=== PATIENT | male | born 1960 | race Two or more races ===

== ENCOUNTER 2024-11-27 13:08 | Emergency (ER) | payer OTHER, SELFPAY ==
[2024-11-27] VITALS (7 sets, daily range): BP systolic 151–192; BP diastolic 96–120; BMI 29.6
[2024-11-27 13:37] LABS: % Basophils 0.4 % (0-2); % Eosinophils 2.7 % (0-6); % Immature Granulocytes 0.4 % (0-0.5); % Lymphocytes 19.3 % (20.5-51.1); % Monocytes 6.5 % (1.7-9.3); % Neutrophils 70.7 % (42.2-75.2); Absolute Eosinophils 0.1 10^3/uL (0-0.7); Absolute Monocytes 0.3 10^3/uL (0.1-0.6); Absolute Neutrophils 3.7 10^3/uL (1.4-6.5); Hematocrit 43.5 % (39.0-52.0); Hemoglobin 14.6 g/dL (13.0-18.0); Mean Corp Hgb Conc. 33.6 g/dL (33.0-37.0); Mean Corpuscular Hgb 30.6 pg (27.0-31.0); Mean Corpuscular Volume 91.2 fL (80.0-94.0); Mean Platelet Volume 11.4 fL (7.4-10.4); Nucleated Red Blood Cells % 0 % (-); Platelet Count 160 10^3/uL (130-400); Red Blood Cell Count 4.77 10^6/uL (4.70-6.10); Red Cell Dist. Width 12.3 % (11.5-14.5); White Blood Cell Count 5.2 10^3/uL (4.8-10.8)
[2024-11-27 13:59] LABS: ALT (SGPT) 36 U/L (0-50); AST (SGOT) 22 U/L (17-59); Albumin 4.8 g/dl (3.5-5.0); Alkaline Phosphatase 94 U/L (38-126); Blood Urea Nitrogen 12 mg/dl (9-20); Calcium 9.2 mg/dl (8.4-10.2); Carbon Dioxide 29 mmol/L (22-30); Chloride 98 mmol/L (98-107); Glucose 104 mg/dl (70-99); Potassium 4.1 mmol/L (3.5-5.1); Sodium 136 mmol/L (135-145); Total Bilirubin 1.4 mg/dl (0.2-1.3); Total Protein 7.7 g/dl (6.3-8.2); eGFR > 60.00
[2024-11-27 14:10] LABS: Troponin I < 0.012 ng/ml
--- NOTE | 2024-11-27 15:37 | ED.GENMED ---
History of Present Illness
General
Chief Complaint: Chest Pain
Source: patient
Exam Limitations: none
Time Seen by Provider: 11/27/24 15:20
Nursing documentation reviewed up to this point in time: agreed with
History of Present Illness
History of Present Illness:
Patient is a 64-year-old male with Past medical history of hypertension followed by his local family doctor on losartan presents to the ER for evaluation of chest pain for the past several days. Pt was brought to the ER by his daughters who are
assisting to translate. He noticed this chest pain and took his blood pressure and it was elevated. Pain comes and goes however seems to worsen when his blood pressure is elevated as per daughter. Patient denies any recent fever chills cough.
Patient recently traveled to [facility] 2 weeks ago. No prior history of PE DVT no lower extremity swelling.
Patient has not taken any [id number] new medicines.
Review of Systems
Review of Systems
Allergies reviewed?: Yes
All Other Systems: ROS reviewed and negative except as documented in HPI and ROS
Constitutional: Reports no symptoms; Denies fever, fatigue or chills
Respiratory: Reports no symptoms
Cardiac: Reports chest pain; Denies diaphoresis, palpitations or syncope
ABD/GI: Reports no symptoms
: Reports no symptoms
Musculoskeletal: Reports no symptoms and other (denies leg pain )
Skin: Reports no symptoms
Psychiatric: Reports no symptoms
Phy Exam
General Physical Exam
General Presentation: no apparent distress
General age: appears stated age
General Skin: warm and dry
General Habitus: normal
General Mental: alert
Cardiovascular Exam
Cardiovascular Exam: no murmur, normal peripheral pulses and tachycardia
Pulmonary Exam
Pulmonary Exam: lungs clear and chest non tender
Gastrointestinal Exam
Gastrointestinal Exam: non tender and soft
Neurological Exam
Neurological Exam: alert and oriented x3
Musculoskeletal Exam
Musculoskeletal Exam: full ROM
Skin Exam
Skin Exam: normal color and warm/dry
Psychiatric Exam
Psychiatric Exam: normal mood/affect
Scores
Heart Score for Chest Pain Patients
STEMI patient?: Not applicable
Course
Orders/Labs/Results
Orders:
Orders
11/27/24 13:08
Electrocardiogram (*1) Urgent
Reason for Study: Chest Pain
EKG- Treatment ONCE
11/27/24 13:21
Complete Blood Count/With Diff Urgent
Comprehensive Metabolic Panel Urgent
Troponin I Urgent
11/27/24 15:54
CT Chest PE Study Urgent
Comment:
Reason For Exam: cp s/p travel
11/27/24 15:55
Ketorolac [Toradol] 15 mg IV NOW STA
Abnormal Lab Results
11/27/24
13:21
MPV 11.4 H fL
(7.4-10.4)
Absolute Lymphs (auto) 1.0 L 10^3/uL
(1.2-3.4)
Lymphocytes % 19.3 L %
(20.5-51.1)
Glucose 104 H mg/dl
(70-99)
Total Bilirubin 1.4 H mg/dl
(0.2-1.3)
11/27/24 13:21
11/27/24 13:21
Vital Signs
Initial and Last Documented VS:
Initial Vital Signs
Temp Pulse Resp BP Pulse Ox
97.8 F 100 16 180/120 100
11/27/24 13:12 11/27/24 13:12 11/27/24 13:12 11/27/24 13:12 11/27/24 13:12
Last Documented Vital Signs
Temp Pulse Resp BP Pulse Ox
97.8 F 103 13 163/111 97
11/27/24 13:12 11/27/24 16:45 11/27/24 16:45 11/27/24 16:31 11/27/24 16:45
MDM/Problems Addressed
Differential Diagnosis Includes:
Less likely hypertensive urgency, ACS, less likely PE
MDM/Problems Addressed:
Patient is a 64-year-old male who presents to the ER with intermittent chest pain for the past several days along with hypertension. Matt Does have a history of hypertension is on losartan.
He has had no associated shortness of breath however with recent travel CT PE study was done and negative. There is incidental thyroid nodule noted I did review this with daughter and the importance of close outpatient follow-up. Patient's blood
pressure has been elevated however no acute distress no evidence of hypertensive urgency or emergency. Patient has no associated headache he has no chest pain now. Will discharge patient home with outpatient follow-up with cardiology will place on
hotline.
*Radiology
Radiology exam reviewed: radiology read reviewed
*Pulse Oximetry
Patient hypoxic: no
*EKG
Interpreted by ED Provider?: Yes
Interpretation: normal
Heart Rate: 98
Rate: normal
Rhythm: sinus
Ischemia: no ischemia
*Critical Care Note
Total Time (30-74mins, 75-104mins- exclusive of procedures): Not Applicable
ED Attending Note
-
Portions of this chart may have been created with voice recognition software.� Occasional wrong word or��sound alike� substitutions may have occurred due to the inherent limitations of voice recognition software.
Discharge Plan
Departure
Patient Disposition: Home (Routine Discharge)
Date of Disposition: 11/27/24
Time of Disposition: 17:29
Patient with high blood pressure during this ER visit?: Yes
Covid-19: Not Applicable
Discharge Problem:
Chest pain, elevated blood pressure
Instructions: Chest Pain DCA Follow Up
Referrals:
Britt Alvarez MD [Family Provider] -
Prince Alcantara DO [Active] -
Activity Restrictions/Additional Instructions:
As discussed patient will be placed on the chest pain hotline which means he should receive a phone call from cardiology in the next 1 to 2 days if you do not hear from the office please give them a call to schedule an appointment soon as possible.
Follow-up both with cardiology and family doctor for reevaluation of symptoms and blood pressure. Also as discussed please follow-up with your family doctor for further evaluation of thyroid findings on CAT scan this will need likely a dedicated
ultrasound of the thyroid
Patient should continue to take his daily blood pressure medication as previously recommended return if any worsening of symptoms.
Interventions
Interventions:
*Risk Screen - Suicide Last Done: 11/27/24 13:12
*General Assessment Last Done: 11/27/24 13:12
*Neglect/Abuse Screening Last Done: 11/27/24 15:27
ED- Fall Risk Assessment Last Done: 11/27/24 15:27
*ED COVID-19 Vaccine History Last Done: 11/27/24 13:12
ED- Cardiac Assessment Last Done: 11/27/24 15:27
Discharge Date and Time
Print Language: YORUBA
[2024-11-27] MEDS: TORADOL 15 MG IV (16:32)
== END 2024-11-27 17:39 | disposition home or self-care (01) ==
LOC: EMR 13:08
PROVIDERS: Emergency Medicine; EMERGENCY PHYSICIAN Emergency Medicine; FAMILY PHYSICIAN Internal Medicine
DX: R07.9 Chest pain, unspecified (principal); I10 Essential (primary) hypertension; Z79.899 Other long term (current) drug therapy; E04.2 Nontoxic multinodular goiter
CPT/HCPCS: 99284; 96374; 71275; 80053; 84484; 85025; 93005; Q9967

== ENCOUNTER 2025-02-09 08:56 | Emergency (ER) | payer OTHER, SELFPAY ==
[2025-02-09] VITALS (7 sets, daily range): BP systolic 133–159; BP diastolic 89–102
--- NOTE | 2025-02-09 09:46 | ED.GENMED ---
History of Present Illness
General
Chief Complaint: Heart Rate Problem
Source: patient and family (Son-in-law who is translating for patient)
Exam Limitations: none
Time Seen by Provider: 02/09/25 09:21
Nursing documentation reviewed up to this point in time: agreed with
History of Present Illness
History of Present Illness:
The patient is a pleasant 64-year-old man who is from [place] and does not speak [place] who arrives with his son-in-law who is translating for him. The patient comes in with complaints of 1 to 2 days of a feeling of a rapid heartbeat and mild
shortness of breath. Patient denies chest pain. He denies recent illness. He denies recent long travel or hospitalization. His last flight was this past November. He denies a history of PE and DVT. He denies a past medical history of cardiac
disease, including heart failure and coronary artery disease. He denies a history of smoking cigarettes and cigars. He also has noticed mild swelling in both of his ankles and feet, equally bilaterally. Patient reports that he is on losartan as
well as amlodipine and last month, and recently had an increase of dosage of at least 1 of those medicines. He reports that he takes the medications as prescribed. He denies being on any other medications. He denies xecq-[id number] medications
such as Sudafed. He denies chest pain.
Past History
Past History
ED Past Medical History: HTN
ED Past Surgical History: Urological
Social History
Tobacco: Non-smoker
Alcohol: Other
Drug: None
Personal:
Living: with family
Employment: Other
Family History
Family History: Other
Review of Systems
Review of Systems
Allergies reviewed?: Yes
All Other Systems: ROS reviewed and negative except as documented in HPI and ROS
Constitutional: Reports no symptoms
EENT: Reports no symptoms
Respiratory: Reports trouble breathing
Cardiac: Reports palpitations
ABD/GI: Reports no symptoms
: Reports no symptoms
Musculoskeletal: Reports edema
Skin: Reports no symptoms
Neurological: Reports no symptoms
Endocrine: Reports no symptoms
Hematologic/Lymphatic: Reports no symptoms
Psychiatric: Reports no symptoms
Phy Exam
Physical Exam
Physical Exam:
Physical Exam
General: no apparent distress, not acutely ill, patient appears extremely comfortable and well
Neck: supple. no meningeal signs. normal psoterior pharynx
Heart: Regular rhythm, tachycardic
Lungs: no acute respiratory distress. clear bilaterally. Breathing comfortably. No tachypnea. No wheezing or crackles
Abdomen: normal bowel sounds. not tender. no CVAT
Neuro: alert and oriented. no focal neurological deficits
Skin: no rash
Psychiatric: well kept. interactive and cooperative
Extremities: 1+ nonpitting edema in bilateral feet and lower legs. Negative Homans' sign.
Course
Orders/Labs/Results
Orders:
Orders
02/09/25 09:01
EKG [Electrocardiogram (*1)] Urgent
Reason for Study: Palpitations
EKG- Treatment ONCE
02/09/25 09:25
Cardiac Monitoring- Treatment ONCE
IV Insert/Care/Rem.- Treatment PRN
02/09/25 09:43
Add On- LAB Urgent
Tests Added?: TSH
02/09/25 09:48
Complete Blood Count/With Diff Urgent
Comprehensive Metabolic Panel Urgent
D-Dimer Urgent
Pro-BNP [NT-proBNP] Urgent
TSH Urgent
Comment: ADD ON
Troponin I Urgent
02/09/25 10:34
Urinalysis Reflex To Culture Urgent
Date Specimen was Collected: 02/09/25
Time Specimen was Collected: 10:08
Urine Microscopic Reflex Cult Urgent
02/09/25 11:22
0.9% Sodium Chloride 1000 ml [Nss] 1,000 ml IV BOLUS
02/09/25 11:23
CT Chest PE Study Urgent
Comment:
Reason For Exam: ongoing tachycardia and palpitations, SOB
02/09/25 12:[address] Non Medication Order As Directed
Physician Order: walking pulse ox and heart rate
Abnormal Lab Results
02/09/25 02/09/25
09:48 10:34
MCH 31.7 H pg
(27.0-31.0)
MCHC 37.4 H g/dL
(33.0-37.0)
MPV 10.8 H fL
(7.4-10.4)
Abs Immat Gran (auto) 0.1 H 10^3/uL
(0-0.05)
Absolute Lymphs (auto) 0.7 L 10^3/uL
(1.2-3.4)
Immature Gran % 0.9 H %
(0-0.5)
Neutrophils % 77.1 H %
(42.2-75.2)
Lymphocytes % 11.7 L %
(20.5-51.1)
Chloride 93 L mmol/L
(98-107)
Carbon Dioxide 31 H mmol/L
(22-30)
Glucose 123 H mg/dl
(70-99)
Ur Occult Blood Reflex 4+ A
(Negative)
Urine RBC 7-10 A /HPF
(0-2)
02/09/25 09:48
02/09/25 09:48
Vital Signs
Initial and Last Documented VS:
Initial Vital Signs
Temp Pulse Resp BP Pulse Ox
98.3 F 108 20 155/101 96
02/09/25 08:57 02/09/25 08:57 02/09/25 08:57 02/09/25 08:57 02/09/25 08:57
Last Documented Vital Signs
Temp Pulse Resp BP Pulse Ox
98.3 F 106 12 133/94 96
02/09/25 08:57 02/09/25 13:30 02/09/25 13:30 02/09/25 13:00 02/09/25 13:30
MDM/Problems Addressed
Differential Diagnosis Includes:
Acute CHF, acute renal insufficiency, acute anemia, acute hyponatremia
MDM/Problems Addressed:
Patient presents with acute palpitations and mild bilateral leg edema
Chronic conditions affecting care: HTN
Acute Exacerbation and/or Progression of Chronic Illness:
Patient's hypertension can lead to acute CHF
Acute Exacerbation and/or Progression of Chronic Illness: HTN
*Pulse Oximetry
Patient hypoxic: no
*EKG
Interpreted by ED Provider?: Yes
Interpretation: abnormal
Comparison EKG: changes noted (Heart rate slightly increased from upper 90s to low 100s)
Rate: tachycardiac
Rhythm: sinus
[place]: normal axis
Interval: normal interval
QRS Pattern: left vent hypertrophy
Ischemia: no ischemia
*Insect Control Inspector Interpretation
Rate: tachycardiac
Interpretation: abnormal
Rhythm: sinus
*Critical Care Note
Total Time (30-74mins, 75-104mins- exclusive of procedures): Not Applicable
Data Reviewed
Source: patient and family
Update Note
Update Note:
Patient has been resting comfortably for hours. CT shows no sign of PE or pericardial effusion. There is no sign of congestive heart failure. Patient is breathing comfortably on room air. Patient is able to walk around comfortably without
concerning shortness of breath.
I did speak to Dr. Jd Newsome who agreed to have his office see patient as an outpatient. Family understands importance of calling cardiology. They understand to return with any worsening shortness of breath or chest pain at all
ED Attending Note
-
Portions of this chart may have been created with voice recognition software.� Occasional wrong word or��sound alike� substitutions may have occurred due to the inherent limitations of voice recognition software.
Discharge Plan
Departure
Patient Disposition: Home (Routine Discharge)
Date of Disposition: 02/09/25
Time of Disposition: 13:35
Patient with high blood pressure during this ER visit?: Yes
Condition: Good
Covid-19: Not Applicable
Discharge Problem:
Sinus tachycardia
Instructions: Sinus Tachycardia (DC), BLOOD PRESSURE
Referrals:
Britt Alvarez MD [Family Provider] -
Jd Bonilla MD [Active] - (Please call this Monday to schedule an appointment as soon as possible)
Activity Restrictions/Additional Instructions:
Return with any chest pain or worsening shortness of breath
Interventions
Interventions:
*Risk Screen - Suicide Last Done: 02/09/25 08:57
*General Assessment Last Done: 02/09/25 10:00
*Neglect/Abuse Screening Last Done: 02/09/25 10:00
*ED- Fall Risk Assessment Last Done: 02/09/25 10:00
*ED COVID-19 Vaccine History Last Done: 02/09/25 10:00
ED- Cardiac Assessment Last Done: 02/09/25 10:00
ED- Pulmonary Assessment Last Done: 02/09/25 10:00
Discharge Date and Time
Print Language: KHMER
[2025-02-09 10:05] LABS: % Basophils 0.3 % (0-2); % Eosinophils 2.3 % (0-6); % Immature Granulocytes 0.9 % (0-0.5); % Lymphocytes 11.7 % (20.5-51.1); % Monocytes 7.7 % (1.7-9.3); % Neutrophils 77.1 % (42.2-75.2); Absolute Eosinophils 0.1 10^3/uL (0-0.7); Absolute Immature Granulocytes 0.1 10^3/uL (0-0.05); Absolute Lymphocytes 0.7 10^3/uL (1.2-3.4); Absolute Monocytes 0.4 10^3/uL (0.1-0.6); Absolute Neutrophils 4.4 10^3/uL (1.4-6.5); Hematocrit 40.1 % (39.0-52.0); Mean Corp Hgb Conc. 37.4 g/dL (33.0-37.0); Mean Corpuscular Hgb 31.7 pg (27.0-31.0); Mean Corpuscular Volume 84.8 fL (80.0-94.0); Mean Platelet Volume 10.8 fL (7.4-10.4); Nucleated Red Blood Cells % 0 % (-); Platelet Count 207 10^3/uL (130-400); Red Blood Cell Count 4.73 10^6/uL (4.70-6.10); Red Cell Dist. Width 12.1 % (11.5-14.5); White Blood Cell Count 5.8 10^3/uL (4.8-10.8)
[2025-02-09 10:12] LABS: ALT (SGPT) 38 U/L (0-50); AST (SGOT) 35 U/L (17-59); Albumin 4.8 g/dl (3.5-5.0); Alkaline Phosphatase 75 U/L (38-126); Blood Urea Nitrogen 14 mg/dl (9-20); Calcium 9.6 mg/dl (8.4-10.2); Carbon Dioxide 31 mmol/L (22-30); Chloride 93 mmol/L (98-107); Glucose 123 mg/dl (70-99); Potassium 3.5 mmol/L (3.5-5.1); Sodium 135 mmol/L (135-145); Total Bilirubin 1.1 mg/dl (0.2-1.3); Total Protein 7.5 g/dl (6.3-8.2); eGFR > 60.00
[2025-02-09 10:24] LABS: NT-proBNP 39.4 pg/ml; Troponin I < 0.012 ng/ml
--- NOTE | 2025-02-09 10:36 | EDRN ---
Urine spec obtained and sent.
--- NOTE | 2025-02-09 10:39 | EDRN ---
Son in law mentioned that pt had JOSE upon ambulating to BR.l Dr. Stallings informed.
[2025-02-09 10:59] LABS: TSH 2.41 uIU/ml (0.47-4.68)
[2025-02-09 11:10] LABS: D-Dimer < 0.27 ug/mlFEU (0.00-0.50)
[2025-02-09] MEDS: NSS 1000 IV (11:31)
[2025-02-09 11:44] LABS: Urine Albumin Negative (Neg - Trace); Urine Bilirubin Negative (Negative); Urine Character Clear (Clear); Urine Color Yellow; Urine Glucose Negative (Negative); Urine Ketone Negative (Negative); Urine Leukocyte Negative (Negative); Urine Nitrite Negative (Negative); Urine Occult Blood 4+ (Negative); Urine Specific Gravity 1.005 (<1.030); Urine Urobilinogen Negative (Neg - 1+)
[2025-02-09 11:51] LABS: Urine White Cell 0-2 /HPF (0-5)
--- NOTE | 2025-02-09 13:10 | EDRN ---
[facility] ED PCT at request of Dr. Stallings walked pt around room x3 times connected to POX and HR. Pulse ox was at baseline and did not change pulse though up to 110. Kavon told results to Dr. Stallings.
--- NOTE | 2025-02-09 13:35 | EDRN ---
Dr. Stallings in room w/pt and family at this time.
== END 2025-02-09 13:49 | disposition home or self-care (01) ==
LOC: EMR 08:56
PROVIDERS: EMERGENCY PHYSICIAN Emergency Medicine; FAMILY PHYSICIAN Internal Medicine
DX: R00.0 Tachycardia, unspecified (principal); R06.02 Shortness of breath; R60.0 Localized edema; I10 Essential (primary) hypertension; Z79.899 Other long term (current) drug therapy
CPT/HCPCS: 99284; 96360; 71275; 80053; 81003; 81015; 83880; 84443; 84484; 85025; 85379; 93005; Q9967

== ENCOUNTER 2025-03-12 15:55 | Emergency (ER) | payer OTHER, SELFPAY ==
[2025-03-12 16:10] VITALS: BP 165/111
[2025-03-12 16:54] LABS: % Basophils 0.5 % (0-2); % Eosinophils 0.5 % (0-6); % Immature Granulocytes 0.4 % (0-0.5); % Lymphocytes 9.7 % (20.5-51.1); % Monocytes 6.2 % (1.7-9.3); % Neutrophils 82.7 % (42.2-75.2); Absolute Lymphocytes 0.7 10^3/uL (1.2-3.4); Absolute Monocytes 0.5 10^3/uL (0.1-0.6); Absolute Neutrophils 6.2 10^3/uL (1.4-6.5); Hemoglobin 15.1 g/dL (13.0-18.0); Mean Corp Hgb Conc. 36.8 g/dL (33.0-37.0); Mean Corpuscular Hgb 31.1 pg (27.0-31.0); Mean Corpuscular Volume 84.5 fL (80.0-94.0); Mean Platelet Volume 10.6 fL (7.4-10.4); Nucleated Red Blood Cells % 0 % (-); Platelet Count 204 10^3/uL (130-400); Red Blood Cell Count 4.85 10^6/uL (4.70-6.10); White Blood Cell Count 7.5 10^3/uL (4.8-10.8)
[2025-03-12 17:03] LABS: INR 0.98; PT 13.5 Sec (11.4-14.6)
[2025-03-12 17:04] LABS: ALT (SGPT) 23 U/L (0-50); APTT 29.9 Sec (23.4-35.0); AST (SGOT) 22 U/L (17-59); Albumin 4.7 g/dl (3.5-5.0); Alkaline Phosphatase 59 U/L (38-126); Blood Urea Nitrogen 13 mg/dl (9-20); Carbon Dioxide 27 mmol/L (22-30); Chloride 95 mmol/L (98-107); Glucose 123 mg/dl (70-99); Potassium 3.1 mmol/L (3.5-5.1); Sodium 131 mmol/L (135-145); Total Bilirubin 1.3 mg/dl (0.2-1.3); Total Protein 7.8 g/dl (6.3-8.2); eGFR > 60.00
[2025-03-12 18:13] VITALS: BP 186/116
--- NOTE | 2025-03-12 19:04 | ED.GENMED ---
History of Present Illness
General
Chief Complaint: Blood Pressure Problem
Source: patient
Exam Limitations: none
Time Seen by Provider: 03/12/25 18:57
History of Present Illness
History of Present Illness:
See MDM
Past History
Past History
ED Past Medical History: HTN
ED Past Surgical History: Urological
Social History
Tobacco: Non-smoker
Alcohol: Other
Drug: None
Personal:
Living: with family
Employment: Other
Family History
Family History: Other
Phy Exam
Physical Exam
Physical Exam:
See MDM
Course
Orders/Labs/Results
Orders:
Orders
03/12/25 16:13
ECG [Electrocardiogram (*1)] Urgent
Reason for Study: Palpitations
03/12/25 16:14
EKG- Treatment ONCE
03/12/25 16:34
Complete Blood Count/With Diff Urgent
Comprehensive Metabolic Panel Urgent
PT/INR [Prothrombin Time] Urgent
PTT Urgent
03/12/25 19:03
CT Head W/o Iv Contrast Urgent
Comment:
Reason For Exam: frontal headache, elevated BP
HydrALAZINE [Apresoline] 10 mg IV NOW STA
Potassium Chloride [KCl] 40 meq PO NOW STA
Abnormal Lab Results
03/12/25
16:34
MCH 31.1 H pg
(27.0-31.0)
MPV 10.6 H fL
(7.4-10.4)
Absolute Lymphs (auto) 0.7 L 10^3/uL
(1.2-3.4)
Neutrophils % 82.7 H %
(42.2-75.2)
Lymphocytes % 9.7 L %
(20.5-51.1)
Sodium 131 L mmol/L
(135-145)
Potassium 3.1 L mmol/L
(3.5-5.1)
Chloride 95 L mmol/L
(98-107)
Glucose 123 H mg/dl
(70-99)
03/12/25 16:34
03/12/25 16:34
Vital Signs
Initial and Last Documented VS:
Initial Vital Signs
Temp Pulse Resp BP Pulse Ox
98.6 F 120 20 165/111 95
03/12/25 16:10 03/12/25 16:10 03/12/25 16:10 03/12/25 16:10 03/12/25 16:10
Last Documented Vital Signs
Temp Pulse Resp BP Pulse Ox
98.6 F 106 13 145/88 93
03/12/25 16:10 03/12/25 20:30 03/12/25 20:30 03/12/25 20:30 03/12/25 20:30
MDM/Problems Addressed
Differential Diagnosis Includes:
HPI and MDM Narrative:
64-year-old male presenting for evaluation of elevated blood pressure. Patient and family member stating that he has been dealing with elevated blood pressure over the past 3 months or so. Over the past 24 hours, they noted that the blood pressure
was about 200/100. Instead of calling the PCP today, they decided come to the hospital. He does complain of a minor headache. Denies chest pain or shortness of breath. Patient claims compliance with his blood pressure medicine which consists of
10 mg amlodipine daily and combination pill of 50 mg losartan/12.5 mg hydrochlorothiazide. He denies any change in diet. Patient found to be very mildly hyponatremic and hypokalemic which could be related to the hydrochlorothiazide. Will give
oral potassium.
Given his headache, will obtain CT head. Will give dose of IV hydralazine
Physical exam
General: Well appearing and non-toxic
HEENT: protecting airway. Pupils equal reactive. EOMI
Neck: appears supple
CV: No evidence of cyanosis. Regular rate and rhythm
Resp: No accessory muscle use
Abd: Non-distended
Extremities: No deformities
Neuro: alert
Psych: Normal affect
Skin: Intact
Problems Addressed including Acute and Chronic Conditions affecting care:
1. Hypertension
Acuity: acute
Prognosis: unstable
Details: Will give dose of IV hydralazine. Blood work performed to rule out any evidence of endorgan damage
2. Headache
Acuity: acute
Prognosis: stable
Details: Given his elevated blood pressure, will obtain CT head
Updates
CT head negative. On reassessment, blood pressure improving and headache improving. I will write for hydralazine as needed if blood pressure greater than 160/90. I will write for short course of potassium and discussed importance of calling PCP
tomorrow to have this evaluated as soon as possible
Differential Diagnosis (but not limited to): Intracranial hemorrhage, tension headache, migraine
Testing considered: Troponin. Denies chest pain or shortness of
Drug therapy (if applicable): OTC meds, please see d/c instruction regarding Rx drugs
Amount and/or Complexity of Data Reviewed
Clinical info obtained from: Patient
External data reviewed: N/A
Labs I independently reviewed (but not limited to): Hyponatremia, hypokalemia
Radiology: The CT scan was personally and independently reviewed. In addition, official CT report reviewed.
Pulse Ox: not hypoxic
EKG independently reviewed: Sinus tachycardia, normal axis, no STEMI
Short Filler Bunch Machine Operator: Sinus rhythm
Critical Care: N/A
Risk of Complication:
Social Determinants of health: Good social support
Discussed with other providers: N/A
Escalation of Care includes Admit/Obs: After being observed in the Emergency Department, pt stable for discharge.
Occasional wrong word or 'sound a like' substitutions may have occurred due to the inherent limitations of voice recognition software. Read the chart carefully and recognize, using context, where substitutions have occurred.
*Critical Care Note
Total Time (30-74mins, 75-104mins- exclusive of procedures): Not Applicable
ED Attending Note
-
Portions of this chart may have been created with voice recognition software.� Occasional wrong word or��sound alike� substitutions may have occurred due to the inherent limitations of voice recognition software.
Discharge Plan
Departure
Patient Disposition: Home (Routine Discharge)
Date of Disposition: 03/12/25
Time of Disposition: 20:39
Patient with high blood pressure during this ER visit?: Yes
Discharge Problem:
HTN (hypertension), Hypokalemia
Instructions: High Blood Pressure (DC), BLOOD PRESSURE
Prescriptions:
New
hydralazine 25 mg tablet
25 mg PO DAILY Qty: 14 0RF
potassium chloride [K-Tab] 20 mEq tablet extended release
20 meq PO DAILY Qty: 7 0RF
Referrals:
Britt Alvarez MD [Family Provider, Internal Medicine]
Activity Restrictions/Additional Instructions:
Please return for any worsening symptoms.
You may return at any time if you have further concerns.
Please take your blood pressure midafternoon daily until speaking to your doctor. The blood pressure is greater than 160/90, you can take a dose of the hydralazine. This will hopefully keep your blood pressure under control until you and your
doctor can decide the best treatment regimen.
Please follow up with your doctor at the first available appointment, preferably this week. Please discuss your elevated blood pressure and your low potassium.
Thank you for choosing [facility].
Interventions
Interventions:
*Risk Screen - Suicide Last Done: 03/12/25 16:10
*General Assessment Last Done: 03/12/25 16:10
ED- Cardiac Assessment Last Done: 03/12/25 18:00
ED- Neurological Assessment Last Done: 03/12/25 18:00
ED- Pulmonary Assessment Last Done: 03/12/25 18:00
Discharge Date and Time
Print Language: KUWAITI
[2025-03-12 19:14] VITALS: BP 170/113
[2025-03-12] MEDS: KCL 40 MEQ PO (19:17)
[2025-03-12] MEDS: APRESOLINE 10 MG IV (19:18)
[2025-03-12 19:30] VITALS: BP 158/94
[2025-03-12 20:00] VITALS: BP 171/98
[2025-03-12 20:30] VITALS: BP 145/88
== END 2025-03-12 20:46 | disposition home or self-care (01) ==
LOC: EMR 15:55
PROVIDERS: Emergency Medicine; EMERGENCY PHYSICIAN Student in an Organized Health Care Education/Training Program; FAMILY PHYSICIAN Internal Medicine
DX: E87.6 Hypokalemia (principal); I10 Essential (primary) hypertension; E87.1 Hypo-osmolality and hyponatremia; Z79.899 Other long term (current) drug therapy
CPT/HCPCS: 96374; 99285; 70450; 80053; 85025; 85610; 85730; 93005

== ENCOUNTER 2025-03-24 18:18 | Emergency (ER) | payer OTHER, SELFPAY ==
[2025-03-24 18:25] VITALS: BP 157/100
[2025-03-24 18:55] LABS: % Basophils 0.3 % (0-2); % Eosinophils 1.4 % (0-6); % Immature Granulocytes 0.4 % (0-0.5); % Lymphocytes 14.6 % (20.5-51.1); % Monocytes 6.3 % (1.7-9.3); Absolute Eosinophils 0.1 10^3/uL (0-0.7); Absolute Lymphocytes 1.1 10^3/uL (1.2-3.4); Absolute Monocytes 0.5 10^3/uL (0.1-0.6); Absolute Neutrophils 5.6 10^3/uL (1.4-6.5); Hematocrit 41.4 % (39.0-52.0); Hemoglobin 15.1 g/dL (13.0-18.0); Mean Corp Hgb Conc. 36.5 g/dL (33.0-37.0); Mean Corpuscular Hgb 30.9 pg (27.0-31.0); Mean Corpuscular Volume 84.7 fL (80.0-94.0); Nucleated Red Blood Cells % 0 % (-); Platelet Count 259 10^3/uL (130-400); Red Blood Cell Count 4.89 10^6/uL (4.70-6.10); Red Cell Dist. Width 11.6 % (11.5-14.5); White Blood Cell Count 7.3 10^3/uL (4.8-10.8)
[2025-03-24 19:16] LABS: ALT (SGPT) 27 U/L (0-50); AST (SGOT) 20 U/L (17-59); Albumin 4.6 g/dl (3.5-5.0); Alkaline Phosphatase 59 U/L (38-126); Blood Urea Nitrogen 12 mg/dl (9-20); Calcium 9.6 mg/dl (8.4-10.2); Carbon Dioxide 26 mmol/L (22-30); Chloride 91 mmol/L (98-107); Glucose 136 mg/dl (70-99); Potassium 3.3 mmol/L (3.5-5.1); Sodium 126 mmol/L (135-145); Total Protein 7.5 g/dl (6.3-8.2); eGFR > 60.00
[2025-03-24 19:36] VITALS: BP 162/105
[2025-03-24 19:39] VITALS: BMI 28.5
[2025-03-24 20:19] VITALS: BP 154/102
[2025-03-24] MEDS: TORADOL 15 MG IM (20:52)
[2025-03-24 21:00] VITALS: BP 156/95
--- NOTE | 2025-03-24 21:27 | EDRN ---
Family reports patient being ready to go home, Dr. brenner aware.
--- NOTE | 2025-03-24 21:28 | ED.GENMED ---
History of Present Illness
General
Chief Complaint: Blood Pressure Problem
Time Seen by Provider: 03/24/25 19:18
History of Present Illness
History of Present Illness:
64-year-old male with history of hypertension presenting to the emergency department for concern of persistent high blood pressure. Patient notes that his blood pressure at home readings have been high and patient has been having daily right-sided
headaches. Patient was seen in the hospital on 03/12 for similar symptoms. Patient is on losartan�HCTZ and metoprolol at baseline. When patient was seen in the hospital, was started on hydralazine. Patient has an appoint with his primary care
doctor tomorrow, however came to the hospital due to blood pressure readings. Denies chest pain or difficulty breathing. Patient was also noted to have low potassium on recent visit, was started on potassium pills. Denies abdominal pain,
vomiting, diarrhea. Denies weakness or numbness to extremities. Denies visual changes. No complaints medications. Denies additional acute medical complaints
Past History
Past History
ED Past Medical History: HTN
ED Past Surgical History: Urological
Social History
Tobacco: Non-smoker
Alcohol: Other
Drug: None
Personal:
Living: with family
Employment: Other
Family History
Family History: Other
Phy Exam
Physical Exam
Physical Exam:
General: Well-appearing, no clinical signs of dehydration, nontoxic and in no acute distress
HEENT: protecting airway
Neck: appears supple
CV: Normal heart rate, regular rhythm
Resp: No accessory muscle use, no increased work of breathing, lungs clear to auscultation bilaterally
Abd: Soft and non-distended, no tenderness to palpation
Extremities: No deformities, no swelling
Neuro: alert, no focal neurologic deficit
: deferred
Rectal: deferred
Psych: Normal affect
Skin: Intact
Course
Orders/Labs/Results
Orders:
Orders
03/24/25 18:29
Electrocardiogram (*1) Urgent
Reason for Study: Hypertension, Benign
EKG- Treatment ONCE
03/24/25 18:45
Complete Blood Count/With Diff Urgent
Comprehensive Metabolic Panel Urgent
03/24/25 20:45
Ketorolac [Toradol] 15 mg IM NOW STA
Abnormal Lab Results
03/24/25
18:45
Absolute Lymphs (auto) 1.1 L 10^3/uL
(1.2-3.4)
Neutrophils % 77.0 H %
(42.2-75.2)
Lymphocytes % 14.6 L %
(20.5-51.1)
Sodium 126 L mmol/L
(135-145)
Potassium 3.3 L mmol/L
(3.5-5.1)
Chloride 91 L mmol/L
(98-107)
Glucose 136 H mg/dl
(70-99)
03/24/25 18:45
03/24/25 18:45
Vital Signs
Initial and Last Documented VS:
Initial Vital Signs
Temp Pulse Resp BP Pulse Ox
98.3 F 98 16 157/100 98
03/24/25 18:25 03/24/25 18:25 03/24/25 18:25 03/24/25 18:25 03/24/25 18:25
Last Documented Vital Signs
Temp Pulse Resp BP Pulse Ox
98.3 F 87 15 156/95 84
03/24/25 18:25 03/24/25 21:23 03/24/25 21:23 03/24/25 21:00 03/24/25 21:23
MDM/Problems Addressed
MDM/Problems Addressed:
64-year-old male with history of hypertension presenting for elevated blood pressure. Vital signs on arrival significant for high blood pressure.
On exam patient resting comfortably, no acute distress or discomfort. Does note mild headache. Suspect hypertension with tension headache. EKG obtained, nonischemic, unchanged from prior without concern for ACS, no present chest pain or
difficulty breathing. Labs obtained prior to my assessment, no endorgan dysfunction, without concern for hypertensive urgency or emergency. Patient is currently on losartan�hydrochlorothiazide, metoprolol, and recently added hydralazine. At this
time, do not feel patient requires new adjustment of medication, is due to see his primary care doctor tomorrow. On review of EMR and recent hospital visit, patient did have a CT of his brain, without acute intracranial abnormality. No present
focal neurologic deficits or concern for central neurologic process. Without present concern for CVA. Labs however do show persistent mild hypokalemia, as well as now hyponatremia. Son notes that he recently adjusted his water intake to low
sodium. This could be contributing to his sodium, as well as being on a diuretic. Patient administered Toradol for headache. On reassessment, remained stable, blood pressure improved without any antihypertensives in the emergency department.
Again feel stable for discharge for management of his blood pressure outpatient by primary care doctor. Communicated importance of repeating the sodium with his primary care doctor. Strict return precautions. Patient and son at bedside verbalized
understanding
*EKG
Interpreted by ED Provider?: Yes
EKG Intrepretation Date: 03/24/25
EKG Intrepretation Time: 21:32
Interpretation: normal
Comparison EKG: no changes (03/12/25)
Heart Rate: 94
Rate: normal
Rhythm: sinus
[place]: normal axis
Interval: normal interval
QRS Pattern: normal QRS
Ischemia: no ischemia
*Critical Care Note
Total Time (30-74mins, 75-104mins- exclusive of procedures): Not Applicable
ED Attending Note
-
Portions of this chart may have been created with voice recognition software.� Occasional wrong word or��sound alike� substitutions may have occurred due to the inherent limitations of voice recognition software.
Discharge Plan
Departure
Patient Disposition: Home (Routine Discharge)
Date of Disposition: 03/24/25
Time of Disposition: 21:25
Patient with high blood pressure during this ER visit?: Yes
Condition: Good
Discharge Problem:
Hypertension, Hyponatremia
Instructions: High Blood Pressure (DC)
Prescriptions:
No Action
hydralazine 25 mg tablet
25 mg PO DAILY Qty: 14 0RF
potassium chloride [K-Tab] 20 mEq tablet extended release
20 meq PO DAILY Qty: 7 0RF
Referrals:
Britt Alvarez MD [Family Provider, Internal Medicine]
Activity Restrictions/Additional Instructions:
You were seen in the emergency department for high blood pressure
You were found to have elevated blood pressure. You have an appoint with your primary care doctor tomorrow so your medications were not adjusted, however please maintain your appointment. You had laboratory analysis which did show low sodium. You
noted that you recently changed your water intake to low sodium water. Please go back to regular sodium water and have the value repeated by your primary care doctor.
Please follow-up closely with your primary care physician.
Return to the emergency department for any worsening of your symptoms, or any development of chest pain, difficulty breathing, abdominal pain with persistent vomiting and inability to tolerate food or liquid by mouth (concern for dehydration),
weakness, headache or confusion, fever greater than 100.4, or any additional symptoms that are concerning to you.
Thank you for choosing [facility].
Interventions
Interventions:
*Risk Screen - Suicide Last Done: 03/24/25 18:25
*General Assessment Last Done: 03/24/25 19:37
*Neglect/Abuse Screening Last Done: 03/24/25 18:25
*ED- Fall Risk Assessment Last Done: 03/24/25 19:37
*ED COVID-19 Vaccine History Last Done: 03/24/25 19:37
ED- Cardiac Assessment Last Done: 03/24/25 19:37
ED- Neurological Assessment Last Done: 03/24/25 19:37
ED- Pulmonary Assessment Last Done: 03/24/25 19:37
Discharge Date and Time
Print Language: FINNISH
== END 2025-03-24 22:06 | disposition home or self-care (01) ==
LOC: EMR 18:18
PROVIDERS: EMERGENCY PHYSICIAN Student in an Organized Health Care Education/Training Program; FAMILY PHYSICIAN Internal Medicine
DX: E87.1 Hypo-osmolality and hyponatremia (principal); I10 Essential (primary) hypertension; E87.6 Hypokalemia; R51.9 Headache, unspecified; Z79.899 Other long term (current) drug therapy
CPT/HCPCS: 96372; 99284; 80053; 85025; 93005

== ENCOUNTER 2025-04-04 18:20 | Emergency (ER) | payer OTHER, SELFPAY ==
[2025-04-04 18:27] VITALS: BP 181/122
[2025-04-04 19:16] LABS: ALT (SGPT) 23 U/L (0-50); AST (SGOT) 22 U/L (17-59); Albumin 4.6 g/dl (3.5-5.0); Alkaline Phosphatase 59 U/L (38-126); Blood Urea Nitrogen 15 mg/dl (9-20); Calcium 9.5 mg/dl (8.4-10.2); Carbon Dioxide 25 mmol/L (22-30); Chloride 102 mmol/L (98-107); Glucose 105 mg/dl (70-99); Potassium 4.4 mmol/L (3.5-5.1); Sodium 135 mmol/L (135-145); Total Bilirubin 0.9 mg/dl (0.2-1.3); Total Protein 7.6 g/dl (6.3-8.2); eGFR > 60.00
[2025-04-04 19:26] LABS: % Basophils 0.4 % (0-2); % Immature Granulocytes 0.4 % (0-0.5); % Lymphocytes 14.3 % (20.5-51.1); % Monocytes 5.3 % (1.7-9.3); % Neutrophils 77.6 % (42.2-75.2); Absolute Eosinophils 0.1 10^3/uL (0-0.7); Absolute Lymphocytes 0.8 10^3/uL (1.2-3.4); Absolute Monocytes 0.3 10^3/uL (0.1-0.6); Absolute Neutrophils 4.2 10^3/uL (1.4-6.5); Hematocrit 42.7 % (39.0-52.0); Hemoglobin 15.5 g/dL (13.0-18.0); Mean Corp Hgb Conc. 36.3 g/dL (33.0-37.0); Mean Corpuscular Hgb 31.2 pg (27.0-31.0); Mean Corpuscular Volume 85.9 fL (80.0-94.0); Mean Platelet Volume 11.4 fL (7.4-10.4); Nucleated Red Blood Cells % 0 % (-); Platelet Count 114 10^3/uL (130-400); Red Blood Cell Count 4.97 10^6/uL (4.70-6.10); Red Cell Dist. Width 11.6 % (11.5-14.5); White Blood Cell Count 5.5 10^3/uL (4.8-10.8)
[2025-04-04 19:28] LABS: Troponin I < 0.012 ng/ml
[2025-04-04 20:19] LABS: TSH Reflex To Free T4 2.45 uIU/ml (0.47-4.68)
[2025-04-04 21:17] VITALS: BMI 27.9
[2025-04-04 21:18] VITALS: BP 171/116
[2025-04-04 22:00] VITALS: BP 159/108
--- NOTE | 2025-04-04 22:34 | ED.GENMED ---
History of Present Illness
General
Chief Complaint: Blood Pressure Problem
Source: patient and family (Son who is translating)
Time Seen by Provider: 04/04/25 22:20
History of Present Illness
History of Present Illness:
64-year-old male presents to the emergency room for elevated blood pressure. The patient has not been taking his blood pressure medication. He states that about 10 days ago he developed swelling of his upper lip when he took his blood pressure
medicines. He is not sure which medication caused it. He had a similar reaction several days before. He stopped taking his medications at that time the swelling went down. When he took his pill 10 days ago is when the swelling returned. His son
brought him here today because his blood pressure has been out of control. Patient denies any chest pain, shortness breath, headache or any other symptoms.
Past History
Past History
ED Past Medical History: HTN
ED Past Surgical History: Urological
Social History
Tobacco: Non-smoker
Alcohol: Other
Drug: None
Personal:
Living: with family
Employment: Other
Family History
Family History: Other
Phy Exam
Physical Exam
Physical Exam:
General: Awake, Alert, Oriented X3. No acute distress.
Vitals: Moderately elevated blood pressure
Head: Atraumatic
Eyes: Pupils equal, EOMI
Throat: Airway intact, no exudates
Neck: Trachea midline
Lungs: Clear and equal b/l
Heart: Regular rate, no murmurs
Abd: Soft, Nontender, No pulsatile mass
Neuro: Nonfocal
Skin: Warm, dry, no rash
Extremities: pulses equal b/l, no edema
Course
Orders/Labs/Results
Orders:
Orders
04/04/25 18:31
ECG [Electrocardiogram (*1)] Urgent
Reason for Study: Tachycardia
EKG- Treatment ONCE
04/04/25 18:36
Complete Blood Count/With Diff Urgent
Comprehensive Metabolic Panel Urgent
TSH Reflex To Free T4 Urgent
Troponin I Urgent
Abnormal Lab Results
04/04/25
18:36
MCH 31.2 H pg
(27.0-31.0)
Plt Count 114 L 10^3/uL
(130-400)
MPV 11.4 H fL
(7.4-10.4)
Absolute Lymphs (auto) 0.8 L 10^3/uL
(1.2-3.4)
Neutrophils % 77.6 H %
(42.2-75.2)
Lymphocytes % 14.3 L %
(20.5-51.1)
Glucose 105 H mg/dl
(70-99)
04/04/25 18:36
04/04/25 18:36
Vital Signs
Initial and Last Documented VS:
Initial Vital Signs
Temp Pulse Resp BP Pulse Ox
98.3 F 116 16 181/122 97
04/04/25 18:27 04/04/25 18:27 04/04/25 18:27 04/04/25 18:27 04/04/25 18:27
Last Documented Vital Signs
Temp Pulse Resp BP Pulse Ox
98.3 F 94 14 160/111 96
04/04/25 18:27 04/04/25 22:39 04/04/25 22:39 04/04/25 22:39 04/04/25 22:39
MDM/Problems Addressed
Differential Diagnosis Includes:
Uncontrolled blood pressure from noncompliance, refractory hypertension, renal failure
MDM/Problems Addressed:
Patient presents with uncontrolled hypertension. His blood pressure is uncontrolled but this is not taking the medication. There was some question of lip swelling so we will stop losartan which might be associate with angioedema. Patient
instructed to resume his other 3 medications. He will need to see how his blood pressure response when he is taking his other 3 meds on a regular basis. I explained that they will not work unless he is taking them every day and his blood pressure
is an expected to respond adequately to just taking a pill once every so often.
*Pulse Oximetry
SaO2: 96
Oxygen Mode of Delivery: Room air
Patient hypoxic: no
*Critical Care Note
Total Time (30-74mins, 75-104mins- exclusive of procedures): Not Applicable
ED Attending Note
-
Portions of this chart may have been created with voice recognition software.� Occasional wrong word or��sound alike� substitutions may have occurred due to the inherent limitations of voice recognition software.
Discharge Plan
Departure
Patient Disposition: Home (Routine Discharge)
Date of Disposition: 04/04/25
Time of Disposition: 22:35
Patient with high blood pressure during this ER visit?: Yes
Condition: Good
Discharge Problem:
Uncontrolled hypertension
Instructions: High Blood Pressure (DC)
Prescriptions:
No Action
hydralazine 25 mg tablet
25 mg PO DAILY Qty: 14 0RF
amlodipine 10 mg Tablet
10 mg PO DAILY
losartan-hydrochlorothiazide 50-12.5 mg Tablet
1 tab PO DAILY
metoprolol tartrate 25 mg Tablet
25 mg PO BID
Referrals:
Britt Alvarez MD [Family Provider, Internal Medicine]
Activity Restrictions/Additional Instructions:
Stop taking the losartan. Resume taking the other [address] Tony know that we have discontinued the losartan because his lip was swelling. I do not believe it is appropriate to add a new medicine until we see how
your father's blood pressure reacts to resuming the 3 other medications and taking them on a regular basis.
Interventions
Interventions:
*Risk Screen - Suicide Last Done: 04/04/25 21:17
*General Assessment Last Done: 04/04/25 21:17
*Neglect/Abuse Screening Last Done: 04/04/25 21:17
*ED- Fall Risk Assessment Last Done: 04/04/25 21:17
*ED COVID-19 Vaccine History Last Done: 04/04/25 21:17
*Nursing Disposition Last Done: 04/04/25 22:45
ED- Cardiac Assessment Last Done: 04/04/25 21:17
ED- Neurological Assessment Last Done: 04/04/25 21:17
ED- Pulmonary Assessment Last Done: 04/04/25 21:17
Discharge Date and Time
Discharge Date/Time: 04/04/25 22:45
Print Language: MALIAN
[2025-04-04 22:39] VITALS: BP 160/111
== END 2025-04-04 22:45 | disposition home or self-care (01) ==
LOC: EMR 18:20
PROVIDERS: Emergency Medicine; EMERGENCY PHYSICIAN Emergency Medicine; FAMILY PHYSICIAN Internal Medicine
DX: I10 Essential (primary) hypertension (principal); Z91.148 Patient's other noncompliance with medication regimen for other reason
CPT/HCPCS: 99283; 80053; 84443; 84484; 85025; 93005